=== PATIENT | female | born 2000 | race Caucasian/White ===

== ENCOUNTER 2022-02-18 16:03 | Inpatient (IN) ==
[2022-02-18] MEDS ORDERED: KETOROLAC 30 MG/1 ML VIAL IV PRN (16:47)
[2022-02-18] MEDS ORDERED: ONDANSETRON 4 MG/2 ML VIAL IV PRN (16:47)
[2022-02-18] MEDS ORDERED: ACETAMINOPHEN 325 MG TABLET PO PRN (16:47)
[2022-02-18] MEDS ORDERED: PROMETHAZINE 25 MG/1 ML VIAL IM PRN (16:47)
[2022-02-18] MEDS ORDERED: BISACODYL 5 MG TABLET PO PRN (16:47)
[2022-02-18 17:29] LABS: Basophils # 0.1 10*3/uL (0.0-0.2); Basophils % 0.5 % (0.0-0.8); Eosinophils # 0.1 10*3/uL (0.0-0.87); Eosinophils % 0.5 % (0.00-10.9); Hematocrit 43.6 VOL% (35.7-47.0); Hemoglobin 13.4 GM/DL (12.0-16.0); Immature Granulocytes % 0.4 %; Immature Granulocytes Absolute 0.05 #; Lymphocytes # 2.6 10*3/uL (1.4-4.0); Lymphocytes % 20.6 % (21.3-54.2); Mean Corpuscular HGB Conc 30.7 GM/DL (32-36); Mean Corpuscular Volume 81.2 FL (87-102); Monocytes # 0.7 10*3/uL (0.11-0.8); Monocytes % 5.9 % (1.7-12.7); Neutrophils % 72.1 % (38.7-73.9); Platelet Count 447 T/CUMM (130-400); Red Blood Count 5.37 MC/CUMM (3.8-5.5); White Blood Count 12.6 T/CUMM (4-12)
[2022-02-18] MEDS: SODIUM CHLORIDE 0.9% 1,000 ML IV SCH (17:40)
[2022-02-18] MEDS: cefTRIAXone 1,000 MG in SODIUM CHLORIDE 0.9% 100 ML IV SCH (17:41)
[2022-02-18] MEDS: PANTOPRAZOLE 40 MG TABLET PO SCH (17:41)
[2022-02-18 17:48] LABS: Bilirubin,Total 0.6 MG/DL (0.20-1.00); Calcium 9.1 MG/DL (8.5-10.1); Osmolality,Calculated 270.8 MOS/KG (273-304); Potassium 3.8 MMOL/L (3.5-5.1); Total Protein 8.4 G/DL (6.4-8.2)
[2022-02-18] MEDS: FAMOTIDINE 20 MG TABLET PO SCH (20:12)
[2022-02-18] MEDS: DOCUSATE SODIUM 100 MG CAPSULE PO SCH (20:12)
[2022-02-19] MEDS: SODIUM CHLORIDE 0.9% 1,000 ML IV SCH ×2 (04:13→14:55)
[2022-02-19 05:39] LABS: Calcium 9.3 MG/DL (8.5-10.1); Osmolality,Calculated 274.5 MOS/KG (273-304); Potassium 3.9 MMOL/L (3.5-5.1); Risk Ratio 3.03; VLDL Cholesterol 11.6 MG/DL
[2022-02-19 06:06] LABS: Basophils # 0.1 10*3/uL (0.0-0.2); Basophils % 0.7 % (0.0-0.8); Eosinophils # 0.2 10*3/uL (0.0-0.87); Eosinophils % 1.7 % (0.00-10.9); Hematocrit 40.5 VOL% (35.7-47.0); Hemoglobin 12.2 GM/DL (12.0-16.0); Immature Granulocytes % 0.4 %; Immature Granulocytes Absolute 0.04 #; Lymphocytes # 3.8 10*3/uL (1.4-4.0); Lymphocytes % 38.4 % (21.3-54.2); Mean Corpuscular HGB Conc 30.1 GM/DL (32-36); Mean Corpuscular Volume 82.5 FL (87-102); Mean Platelet Volume 10.3 FL (9.6-12.0); Monocytes # 0.8 10*3/uL (0.11-0.8); Monocytes % 8.1 % (1.7-12.7); Neutrophils % 50.7 % (38.7-73.9); Platelet Count 363 T/CUMM (130-400); Red Blood Count 4.91 MC/CUMM (3.8-5.5); Red Cell Distribution Width 15.1 % (9.3-17.3); White Blood Count 9.9 T/CUMM (4-12)
[2022-02-19] MEDS: FAMOTIDINE 20 MG TABLET PO SCH ×2 (08:46→22:37)
[2022-02-19] MEDS: PANTOPRAZOLE 40 MG TABLET PO SCH (08:46)
[2022-02-19] MEDS: DOCUSATE SODIUM 100 MG CAPSULE PO SCH ×2 (08:46→22:35)
[2022-02-19] MEDS: cefTRIAXone 1,000 MG in SODIUM CHLORIDE 0.9% 100 ML IV SCH (18:12)
[2022-02-19] MEDS ORDERED: PROCHLORPERAZINE 10 MG TABLET PO PRN (19:02)
[2022-02-20] MEDS: SODIUM CHLORIDE 0.9% 1,000 ML IV SCH ×2 (02:05→10:05)
[2022-02-20] MEDS: PANTOPRAZOLE 40 MG TABLET PO SCH (09:58)
[2022-02-20] MEDS: DOCUSATE SODIUM 100 MG CAPSULE PO SCH (09:58)
[2022-02-20] MEDS: FAMOTIDINE 20 MG TABLET PO SCH (09:58)
[2022-02-20] MEDS: cefTRIAXone 1,000 MG in SODIUM CHLORIDE 0.9% 100 ML IV SCH (10:04)
[2022-02-20] MEDS ORDERED: LIDOCAINE 2% 5 ML VIAL ONE (12:43)
[2022-02-20] MEDS ORDERED: propofoL 200 MG/20 ML VIAL IV ONE (12:43)
[2022-02-20] MEDS ORDERED: LACTATED RINGERS 1,000 ML IV SCH (14:30)
[2022-02-20 16:24] VITALS: BP 120/78
== END 2022-02-20 17:13 | disposition home or self-care (01) | DRG 392 ==
LOC: N.5E 16:32
PROVIDERS: ADMIT Internal Medicine; ATTEND Internal Medicine